=== PATIENT | male | born 1975 | race Two or more races ===

== ENCOUNTER 2023-12-02 14:19 | Emergency (ER) | payer SELFPAY ==
[~2023-12-02] VITALS: Ht 170.2 cm; Wt 77.2 kg
[2023-12-02 18:35] VITALS: BP 119/74; PULSE 74; RESP 18; TEMP 98.8; O2SAT 99
[2023-12-02] MEDS ORDERED: TETANUS-DIPTH-ACEL PERTUSSIS 0.5ML SYR Tdap IM ONE (19:15)
== END 2023-12-02 20:14 | disposition home or self-care (01) ==
LOC: ER 14:19
DX: S61.012A Laceration without foreign body of left thumb without damage to nail, initial encounter (principal); X58.XXXA Exposure to other specified factors, initial encounter; Y93.89 Activity, other specified; Y92.89 Other specified places as the place of occurrence of the external cause; Y99.8 Other external cause status
CPT/HCPCS: 12002; 73120; 90471; 90715